=== PATIENT | male | born 2000 | race Caucasian/White ===

== ENCOUNTER 2022-06-12 11:52 | Emergency (ER) | payer OTHER, MEDICAID, SELFPAY ==
[2022-06-12 12:13] VITALS: BP 118/55; PULSE 72; RESP 15; TEMP 36.7; O2SAT 100; BMI 21.0
[2022-06-12] MEDS: IBUPROFEN 400 MG TABLET 800 MG PO (12:21)
[2022-06-12 13:20] LABS: Influenza A - CEPHEID Flu A NEGATIVE (NEGATIVE); Influenza B - CEPHEID Flu B NEGATIVE (NEGATIVE); Respiratory Syncytial Virus Negative (Negative)
[2022-06-12 13:21] LABS: COVID-19 CEPHEID 4-PLEX PCR Negative (Negative)
[2022-06-12] MEDS: ACETAMINOPHEN 325 MG TABLET 975 MG PO (15:30)
[2022-06-12] MEDS: METOCLOPRAMIDE HCL 10 MG TABLET PO (15:31)
[2022-06-12 15:37] VITALS: BP 126/58; PULSE 58; O2SAT 99
--- NOTE | 2022-06-18 12:22 | ED_ITS ---
HPI - URI/Sore Throat <Annamarie Mandel PA-C - Last Filed: 06/18/22 12:43> General Chief Complaint: Upper Respiratory Symptoms Stated Complaint: Headache for three days Time Seen by Provider: 06/12/22 14:32 Source: patient Mode of arrival: Ambulatory History of Present Illness HPI Narrative: 21-year-old male with no reported past medical history presents to the ED with 3 days of URI symptoms. Patient complains of a headache, fever, cough, congestion. Patient took some DayQuil and ibuprofen earlier this morning. Patient denies chest pain, shortness of breath, nausea, vomiting, diarrhea. Patient denies neck pain, neck stiffness, rash. Patient denies numbness, tingling, weakness, saddle paresthesias, urinary hesitancy, urinary incontinence, bowel incontinence. Patient denies recreational drug use. Related Data Previous Rx's Medication Instructions Recorded benzonatate 200 mg capsule 200 mg PO TID PRN cough #30 caps 06/12/22 Allergies Allergy/AdvReac Type Severity Reaction Status Date / Time No Known Drug Allergies Allergy Verified 06/12/22 12:13 Review of Systems <Annamarie Mandel PA-C - Last Filed: 06/18/22 12:43> Review of Systems ROS Unobtainable: All systems reviewed & are unremarkable except as noted in HPI and below Constitutional Constitutional: Denies chills, Denies fatigue, Reports fever(s), Denies frequent falls, Reports headache(s), Denies lethargy and Denies weakness Eyes Eyes: Denies change in vision, Denies eye discharge, Denies irritation and Denies loss of vision ENT Ears, Nose, Mouth, and Throat: Denies change in voice, Denies dizziness, Reports headache(s), Reports nasal congestion, Denies neck pain, Denies sore throat and Denies throat swelling Cardiovascular Cardiovascular: Denies chest pain, Denies irregular heart rhythm, Denies lightheadedness, Denies palpitations, Denies dyspnea, Denies dyspnea on exertion and Denies orthopnea Respiratory Respiratory: Reports chest congestion, Reports cough, Denies dyspnea, Denies dyspnea on exertion and Denies wheezing Gastrointestinal Gastrointestinal: Denies abdominal pain, Denies change in bowel habits, Denies diarrhea, Denies nausea and Denies vomiting Genitourinary Genitourinary: Denies hematuria, Denies flank pain, Denies urinary incontinence and Denies urinary urgency Musculoskeletal Musculoskeletal: Denies back pain, Denies muscle weakness, Denies neck pain, Denies numbness and Denies tingling Integumentary/Breasts Skin/Breast: Denies pruritus, Denies erythema, Denies rash and Denies wounds Neurologic Neurologic: Denies behavioral changes, Denies confusion, Denies dizziness, Denies frequent falls, Reports headache(s), Denies loss of vision, Denies numbness, Denies tingling and Denies weakness Psychiatric Psychiatric: Denies anxiety, Denies behavioral changes, Denies confusion, Denies depression, Denies homicidal ideation and Denies suicidal ideation Endocrine Endocrine: Denies fatigue, Denies flushing and Denies palpitations Hematologic/Lymphatic Hematologic/Lymphatic: Denies easy bruising Allergic/Immunologic Allergic/Immunologic: Denies urticaria, Denies throat swelling and Denies wheezing Patient History <Annamarie Mandel PA-C - Last Filed: 06/18/22 12:43> Social History Smoking Status: Former smoker Smoking Status: Former smoker alcohol intake frequency: holidays/special occasions only Substance Use Type: marijuana Exam <Annamarie Mandel PA-C - Last Filed: 06/18/22 12:43> Narrative Exam Narrative: Const General:?cooperative, healthy appearing and comfortable [facility] Head:?normal to inspection Ears:?hearing grossly normal bilaterally Nose:?external nose normal Face and sinus:?normal facial exam and sinuses nontender Mouth:?oral mucosae normal Throat:?posterior oropharynx normal Eyes General:?appearance normal, both eyes and all related structures Neck Neck:?normal visual inspection and no lymphadenopathy noted Resp Effort & Inspection:?normal respiratory effort Auscultation:?clear to auscultation bilaterally Cardio Rate:?regular rate Rhythm:?regular rhythm Neuro General:?patient alert, patient awake and patient oriented x3; negative meningeal signs. Initial Vital Signs Initial Vital Signs: Vital Signs Temperature 98.0 F 06/12/22 12:13 Pulse Rate 72 06/12/22 12:13 Respiratory Rate 15 06/12/22 12:13 Blood Pressure 118/55 L 06/12/22 12:13 Pulse Oximetry 100 06/12/22 12:13 Oxygen Delivery Method 06/12/22 12:13 <Rian Wu MD - Last Filed: 06/20/22 21:40> Initial Vital Signs Initial Vital Signs: Vital Signs Temperature 98.0 F 06/12/22 12:13 Pulse Rate 72 06/12/22 12:13 Respiratory Rate 15 06/12/22 12:13 Blood Pressure 118/55 L 06/12/22 12:13 Pulse Oximetry 100 06/12/22 12:13 Oxygen Delivery Method 06/12/22 12:13 Course <Annamarie Mandel PA-C - Last Filed: 06/18/22 12:43> Orders Ordered: Discontinued Medications Acetaminophen (Acetaminophen 325 Mg Tablet) 975 mg PO NOW ONE Stop: 06/12/22 15:24 Last Admin: 06/12/22 15:30 Dose: 975 mg Documented By: RICKI Ibuprofen (Ibuprofen 400 Mg Tablet) 800 mg PO NOW ONE Stop: 06/12/22 12:17 Last Admin: 06/12/22 12:21 Dose: 800 mg Documented By: LINDA Metoclopramide HCl (Metoclopramide Hcl 10 Mg Tablet) 10 mg PO NOW ONE Stop: 06/12/22 15:24 Last Admin: 06/12/22 15:31 Dose: 10 mg Documented By: RICKI <Rian Wu MD - Last Filed: 06/20/22 21:40> Orders Ordered: Discontinued Medications Acetaminophen (Acetaminophen 325 Mg Tablet) 975 mg PO NOW ONE Stop: 06/12/22 15:24 Last Admin: 06/12/22 15:30 Dose: 975 mg Documented By: RICKI Ibuprofen (Ibuprofen 400 Mg Tablet) 800 mg PO NOW ONE Stop: 06/12/22 12:17 Last Admin: 06/12/22 12:21 Dose: 800 mg Documented By: LINDA Metoclopramide HCl (Metoclopramide Hcl 10 Mg Tablet) 10 mg PO NOW ONE Stop: 06/12/22 15:24 Last Admin: 06/12/22 15:31 Dose: 10 mg Documented By: RICKI MDM - URI/Sore Throat <Annamarie Mandel PA-C - Last Filed: 06/18/22 12:43> Lab Data Labs: Lab Results 06/12/22 Range/Units 12:15 SARS-CoV-2 (PCR) Negative (Negative) Influenza A (RT-PCR) Flu a negative (NEGATIVE) Influenza B (RT-PCR) Flu b negative (NEGATIVE) RSV (PCR) Negative (Negative) MDM Narrative Medical decision making narrative: 21-year-old male with no reported past medical history presents to the ED with 3 days of URI symptoms. Likely viral URI, primary headache. Patient was negative for COVID-19, influenza, RSV. Prescribed Tessalon Perles for cough. Patient was given Reglan, Tylenol for headache. Patient's symptoms improved with medications. Discharge patient home with ED return precautions. Patient verbalized understanding. <Rian Wu MD - Last Filed: 06/20/22 21:40> Lab Data Labs: Lab Results 06/12/22 Range/Units 12:15 SARS-CoV-2 (PCR) Negative (Negative) Influenza A (RT-PCR) Flu a negative (NEGATIVE) Influenza B (RT-PCR) Flu b negative (NEGATIVE) RSV (PCR) Negative (Negative) Discharge Plan Departure Patient Disposition: Home Clinical Impression: Upper respiratory infection Instructions: DI for Viral Upper Respiratory Infection -- Adult Activity Restrictions/Additional Instructions: You were evaluated in the ED today for a cough and headache. You tested negative for COVID, influenza, RSV. Your symptoms are likely due to a viral up per respiratory infection. You are being prescribed Tessalon Perles for your cough. You were given Reglan, Tylenol in the ED today for your headache. You may continue taking Tylenol and/or ibuprofen for your headache. Return to the ED if you experience chest pain, shortness of breath. Prescriptions: New benzonatate 200 mg capsule 200 mg PO TID PRN (Reason: cough) Qty: 30 0RF Stand Alone Forms: Patient Portal/API <Rian Wu MD - Last Filed: 06/20/22 21:40> Cosign ED Attending Cosignature Attestation: I was immediately available in the department for consultation. Documentation has been reviewed. I agree with assessment and plan.
== END 2022-06-12 15:38 | disposition home or self-care (01) ==
PROVIDERS: Emergency Medicine; Emergency Provider Student in an Organized Health Care Education/Training Program
DX: J06.9 Acute upper respiratory infection, unspecified (principal); R05.9 Cough, unspecified; Z20.822 Contact with and (suspected) exposure to COVID-19
CPT/HCPCS: 0241U; 99282; 99283